=== PATIENT | male | born 1980 | race Caucasian/White ===

== ENCOUNTER 2018-09-03 16:51 | Emergency (ER) | payer OTHER ==
[~2018-09-03] VITALS: Ht 160 cm; Wt 67.1 kg
== END 2018-09-03 19:36 | disposition home or self-care (01) ==
LOC: ER 16:51
DX: K59.09 Other constipation (principal); M54.5 Low back pain

== ENCOUNTER 2021-09-20 21:17 | Emergency (ER) | payer OTHER ==
[~2021-09-20] VITALS: Ht 160 cm; Wt 72.6 kg
== END 2021-09-21 02:01 | disposition left against medical advice (07) ==
LOC: ER 21:17 → EDBD 21:21 → ER 09-21 02:01
DX: M54.89 Other dorsalgia (principal)

== ENCOUNTER 2021-12-09 21:17 | Emergency (ER) | payer OTHER ==
[~2021-12-09] VITALS: Ht 160 cm; Wt 72.6 kg
[2021-12-09] MEDS ORDERED: TYLENOR (21:41)
== END 2021-12-10 00:12 | disposition home or self-care (01) ==
LOC: ER 21:17
DX: J02.9 Acute pharyngitis, unspecified (principal); B34.9 Viral infection, unspecified; Z20.822 Contact with and (suspected) exposure to COVID-19